=== PATIENT | male | born 1950 | race Caucasian/White ===

== ENCOUNTER 2017-05-17 10:24 | Emergency (ER) | payer MEDICARE, BC ==
[2017-05-17 10:40] VITALS: BP 151/92
--- NOTE | 2017-05-17 11:26 | EDM.PDOC ---
ED HPI GENERAL MEDICAL PROBLEM - General Chief Complaint: Genitourinary Problem Stated Complaint: TROUBLE URINATING Time Seen by Provider: 05/17/17 10:32 Source of Information: Reports: Patient, Family (), RN Notes Reviewed History Limitations: Reports: No Limitations - History of Present Illness INITIAL COMMENTS - FREE TEXT/NARRATIVE: The patient reports dysuria, urinary urgency, and urinary frequency that developed 05/15/2017, after he and his had a long drive without stops. The patient and his are visiting from [place], [place]. When asked, the patient states that he might have some suprapubic and low back pain. He has had nausea, but no vomiting. He has had a subjective fever. He states that he took 4 tablets of [id number] peridium yesterday, and 2 tablets today. No prior similar symptoms. The patient has known BPH, but has not previously suffered from urinary outflow obstruction. Penis Pain Score (Numeric/FACES): 2 - Related Data Allergies Allergy/AdvReac Type Severity Reaction Status Date / Time No Known Allergies Allergy Verified 05/17/17 10:31 Home Meds: Home Meds Sulfamethoxazole/Trimethoprim [Bactrim Ds Tablet] 1 tab PO Q12H #6 tablet [Rx] Tamsulosin HCl 0.4 mg PO DAILY 05/17/17 [History] Past Medical History Genitourinary History: Reports: BPH - Past Surgical History HEENT Surgical History: Reports: Oral Surgery ([place] tooth extraction), Tonsillectomy Male Surgical History: Reports: Prostate Biopsy Social & Family History - Tobacco Use Smoking Status *Q: Never Smoker - Caffeine Use Caffeine Use: Reports: Coffee - Alcohol Use Alcohol Use History: Yes Alcohol Use Frequency: Socially - Recreational Drug Use Recreational Drug Use: No - Living Situation & Occupation Living situation: Reports: , with Spouse 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) ED ROS GENERAL - Review of Systems Review Of Systems: See Below Constitutional: Reports: No Symptoms HEENT: Reports: No Symptoms Respiratory: Reports: No Symptoms Cardiovascular: Reports: No Symptoms Endocrine: Reports: No Symptoms GI/Abdominal: Reports: No Symptoms : Reports: No Symptoms Musculoskeletal: Reports: No Symptoms Skin: Reports: No Symptoms Neurological: Reports: No Symptoms Psychiatric: Reports: No Symptoms Hematologic/Lymphatic: Reports: No Symptoms Immunologic: Reports: No Symptoms ED EXAM, RENAL/ - Physical Exam Exam: See Below Exam Limited By: No Limitations General Appearance: Alert, WD/WN, Mild Distress (appears uncomfortable) Ears: Normal External Exam, Hearing Grossly Normal Nose: Normal Inspection, No Blood Throat/Mouth: Normal Inspection, Normal Lips, Normal Voice, No Airway Compromise Head: Atraumatic, Normocephalic Neck: Normal Inspection Respiratory/Chest: No Respiratory Distress, Lungs Clear, Normal Breath Sounds, No Accessory Muscle Use Cardiovascular: Normal Peripheral Pulses, Regular Rate, Rhythm, No Gallop, No JVD, No Murmur, No Rub GI/Abdominal: Normal Bowel Sounds, Soft, No Organomegaly, No Abnormal Bruit, No Mass, Distended (suprapubic fullness), Tender (suprapubic region only) (Male) Exam: Deferred Rectal (Males) Exam: Deferred Back Exam: Normal Inspection, Full Range of Motion. No: CVA Tenderness (L), CVA Tenderness (R) Extremities: Normal Inspection, Normal Range of Motion, No Pedal Edema, Normal Capillary Refill Neurological: Alert, Oriented, Normal Cognition, No Motor/Sensory Deficits Psychiatric: Normal Affect Skin Exam: Warm, Dry, Intact, Normal Color, No Rash Lymphatic: No Adenopathy Course - Vital Signs Last Recorded V/S: Last Vital Signs Temp 36.8 C 05/17/17 10:31 Pulse 92 05/17/17 10:31 Resp 18 05/17/17 10:31 BP 151/92 H 05/17/17 10:31 Pulse Ox 98 05/17/17 10:31 - Orders/Labs/Meds Orders: Active Orders 24 hr Category Date Time Status Patton Catheter Insertion [Insert Urinary Catheter] [OM. Care 05/17/17 11:30 Ordered PC] Q24H Urinary Catheter Assessment [RC] ASDIRECTED Care 05/17/17 11:25 Active CULTURE URINE [RM] Stat Lab 05/17/17 10:55 Received Labs: Laboratory Tests 05/17/17 Range/Units 10:55 Urine Color Lary H (Yellow) Urine Appearance Slt cloudy H (Clear) Urine pH 5.0 (5.0-8.0) Ur Specific [place] 1.010 (1.005-1.030) Urine Protein 2+ H (Negative) Urine Glucose (UA) 1+ H (Negative) Urine Ketones 1+ H (Negative) Urine Occult Blood 3+ H (Negative) Urine Nitrite Positive H (Negative) Urine Bilirubin 2+ H (Negative) Urine Urobilinogen 4.0 H (0.2-1.0) Ur Leukocyte Esterase 3+ H (Negative) Urine RBC 20-30 H (0-5) /hpf Urine WBC 5-10 H (0-5) /hpf Ur Epithelial Cells Not seen (0-5) /hpf Urine Bacteria Few (FEW) /hpf Urine Mucus Few (FEW) /hpf Meds: Medications Discontinued Medications Generic Name Dose Route Start Last Admin Trade Name Freq PRN Reason Stop Dose Admin Trimethoprim/Sulfamethoxazole 1 tab 05/17/17 11:56 05/17/17 12:09 Septra Ds PO 05/17/17 11:57 1 tab ONETIME ONE Administration - Re-Assessments/Exams Free Text/Narrative Re-Assessment/Exam: 05/17/17 11:25 Post-void bladder scan demonstrates greater than 1 L urinary retention. I have ordered a Patton catheter to a leg bag. 05/17/17 11:57 The patient's urinalysis is concerning for a urinary tract infection. I have ordered a urine culture, and will start the patient on a 3-day course of Bactrim. The patient can follow-up with his own Urologist once he returns home to [place], [place]. Departure - Departure Time of Disposition: 12:11 Disposition: Home, Self-Care 01 Condition: Good Clinical Impression: Urinary outflow obstruction - Discharge Information Prescriptions: Sulfamethoxazole/Trimethoprim [Bactrim Ds Tablet] 1 tab PO Q12H #6 tablet Instructions: Patton Catheter Care, Adult, Urinary Tract Infection, Adult, Patton Catheter Care, Adult, [id number], Acute Urinary Retention, Male Referrals: Jeremy Mane [Physician] - Forms: ED Department Discharge Additional Instructions: You were seen in the emergency room for painful, difficult urination. Workup in the ER included a urinalysis and bladder scan. You were found to have over 1 L of urine in your bladder after urinating. A Patton catheter was placed to a leg bag. Your urinalysis was concerning for a urinary tract infection. You have been started on the antibiotic Bactrim. Take one tablet every 12 hours, starting late tonight, as prescribed. Finish the entire prescription unless told otherwise by a doctor. Stay adequately hydrated, so that your urine is light colored, like lemonade, not dark, like apple juice. Since you have already reached the maximum dose of Pyridium, we recommend that you not take any more. Empty the urine bag as necessary. Make sure that it is lower than your body when you are lying down or sleeping, so that urine does not backflow into your bladder. Have someone from your doctor's office call Dr. Mane's clinic on Sunday, 05/21, to check on your urine culture results, to make sure that you are on the correct antibiotic. Follow-up with your Urologist at the next available appointment to have the Patton catheter removed. If any other problems, please do not hesitate to return to the ER. - My Orders Last 24 Hours: My Active Orders 05/17/17 10:55 CULTURE URINE [RM] Stat 05/17/17 11:25 Urinary Catheter Assessment [RC] ASDIRECTED 05/17/17 11:30 Patton Catheter Insertion [Insert Urinary Catheter] [OM.PC] Q24H - Assessment/Plan Last 24 Hours: My Active Orders 05/17/17 10:55 CULTURE URINE [RM] Stat 05/17/17 11:25 Urinary Catheter Assessment [RC] ASDIRECTED 05/17/17 11:30 Patton Catheter Insertion [Insert Urinary Catheter] [OM.PC] Q24H
[2017-05-17] MEDS ORDERED: Sulfamethoxazole/Trimethoprim 800-160 MG Tab PO ONE (11:56)
== END 2017-05-17 12:45 | disposition home or self-care (01) ==
LOC: JD.ED 10:24
DX: N13.9 Obstructive and reflux uropathy, unspecified (principal); Z79.899 Other long term (current) drug therapy; Z98.890 Other specified postprocedural states
CPT/HCPCS: 51702; 51798; 81001; 87086; 99284; A9270; 99283